=== PATIENT | female | born 1950 | race Caucasian/White ===

== ENCOUNTER 2018-10-19 07:02 | Day surgery (SDC) | payer MEDICARE, OTHER ==
[~2018-10-19 07:02] MED LIST: Lactated Ringers 1,000 ML IV SCH
[2018-10-19] MEDS ORDERED: Propofol 200 MG/20 ML SDV ONE ×2 (08:01→09:28)
[2018-10-19] MEDS ORDERED: fentaNYL 100 MCG/2 ML SDV ONE (08:01)
[2018-10-19 10:16] VITALS: BP 121/69; PULSE 66
--- NOTE | 2018-10-19 17:27 | OR ---
DATE OF SURGERY: 10/19/2018. REFERRING PROVIDER: Madonna Resendez PA-C. PRE-OPERATIVE DIAGNOSES: History of colon polyps. Last colonoscopy in 2013 revealed tortuous, but otherwise normal colon. In 2010, the patient had some mildly dysplastic polyps, and in 2006 had normal colonoscopy. There is no known family history of colon cancer. POST-OPERATIVE DIAGNOSES: 1. Tortuous, but otherwise normal colon. 2. [id number]-gv-[id number] hemorrhoids, both internal and external. PROCEDURE: Colonoscopy. SURGEON: Cole Rooney M.D. ANESTHESIA: Monitored anesthesia care. BOWEL PREP: Good. Angela is a 67-year-old female who was brought to the endoscopy suite after discussing risks and benefits of the procedure. Informed consent was obtained for conscious sedation and colonoscopy with or without biopsy and/or polypectomy. We also discussed possibility of missed lesions. Pre-procedure exam was unremarkable. IV, oxygen, and monitors were placed. The patient was placed in the left lateral decubitus position. Sedation was administered and a digital rectal exam was performed which was remarkable for some external hemorrhoids, not acutely inflamed. Colonoscope was passed into the rectum and slowly advanced all the way to the cecum. The patient did have rather tortuous colon, which required some scope maneuvering and turning the patient on to her back as well as some abdominal pressure. Cecum was viewed and photographed. The colonoscope was slowly withdrawn and the mucosa was closed observed in a direct circumferential manner. The ascending colon was unremarkable. The transverse colon was unremarkable. The descending colon was unremarkable. The sigmoid colon was unremarkable. Retroflexion was performed and rectal mucosa revealed some [id number] internal hemorrhoids, not acutely inflamed. Scope was removed. The patient tolerated the procedure well. The patient was monitored until that baseline status. Discharge instructions were reviewed and the patient was discharged in good condition. COMPLICATIONS: None. TOTAL TIME: 35 minutes. ESTIMATED BLOOD LOSS: None. RECOMMENDATIONS/FOLLOW-UP: Given the patient's history of mildly dysplastic polyps back in 2010, I would recommend repeat again in 5 years. I would like to kindly thank Madonna Resendez for this referral. DMB: 10/19/2018 10:17:23 MODL: 10/19/2018 16:59:26 /[id number]
== END 2018-10-19 11:20 | disposition home or self-care (01) ==
LOC: VM.SDS 07:02
PROVIDERS: ATTEND Family Medicine
DX: Z12.11 Encounter for screening for malignant neoplasm of colon (principal); Q43.8 Other specified congenital malformations of intestine; K64.8 Other hemorrhoids; K64.4 Residual hemorrhoidal skin tags; K21.9 Gastro-esophageal reflux disease without esophagitis; M19.90 Unspecified osteoarthritis, unspecified site; I10 Essential (primary) hypertension; E78.5 Hyperlipidemia, unspecified; E66.9 Obesity, unspecified; Z68.30 Body mass index [BMI] 30.0-30.9, adult; Z79.899 Other long term (current) drug therapy; Z86.010 Personal history of colon polyps; Z79.82 Long term (current) use of aspirin
CPT/HCPCS: G0121; J2704; J3010; J7120

== ENCOUNTER 2022-05-28 08:21 | Day surgery (SDC) | payer MEDICARE, OTHER ==
[~2022-05-28 08:21] MED LIST changes: +Propofol 200 MG/20 ML SDV ONE; +fentaNYL 100 MCG/2 ML SDV ONE
[2022-05-28] MEDS ORDERED: Propofol 200 MG/20 ML SDV ONE (10:59)
[2022-05-28 12:09] VITALS: BP 123/70; PULSE 90
== END 2022-05-28 12:35 | disposition home or self-care (01) ==
LOC: VM.SDS 08:21
PROVIDERS: ATTEND Student in an Organized Health Care Education/Training Program
DX: D12.3 Benign neoplasm of transverse colon (principal); E78.00 Pure hypercholesterolemia, unspecified; I10 Essential (primary) hypertension; K21.9 Gastro-esophageal reflux disease without esophagitis; E66.9 Obesity, unspecified; C50.111 Malignant neoplasm of central portion of right female breast; Z86.010 Personal history of colon polyps; Z79.899 Other long term (current) drug therapy; Z68.32 Body mass index [BMI] 32.0-32.9, adult
CPT/HCPCS: 00811; 88305; J2704; J3010; J7120